=== PATIENT | male | born 1955 | race Caucasian/White ===

== ENCOUNTER → 2019-07-05 | Outpatient (CLI) | payer OTHER ==
--- NOTE | 2019-07-05 17:21 | CT ---
EXAMINATION TYPE: CT soft tissue neck w con DATE OF EXAM: 07/05/2019 3:18 PM COMPARISON: None HISTORY: swelling to left side of neck CT DLP: 354.1 mGycm Automated exposure control for dose reduction was used. CONTRAST: CT scan of the neck is performed following with IV Contrast, patient injected with 100 mL of Isovue 3 00. Axial images are obtained, coronal and sagittal reformatted images are reviewed. FINDINGS: Airway: No gross abnormality seen. Parotid/submandibular glands: No gross abnormality seen. Carotid/Vascular Structures: Proximal descending aorta is aneurysmal at 3.7 cm. For super aortic bran ch vessels are present from the transverse aorta. Osseous Structures: Degenerative disc changes in the visualized spine. Other: At the level of the hyoid bone on the left there is an enlarged node present causing some post erior displacement of the anterior margin of the left sternocleidomastoid muscle extending to the sub mandibular location and measuring approximately 3 cm x 4.4 cm x 3 cm. There is mass effect on the int ernal jugular vein anterior margin and posterior margin of the left submandibular gland. Smaller node s are present at the level of the thyroid cartilage on the left posterior to the internal jugular vei n which are subcentimeter in size. IMPRESSION: There is lymphadenopathy left neck described.
== END | disposition home or self-care (01) ==
LOC: RADCTMAIN 14:57
PROVIDERS: ATTEND Otolaryngology
DX: R59.0 Localized enlarged lymph nodes (principal)
CPT/HCPCS: 70491; Q9967

== ENCOUNTER → 2019-07-29 | Outpatient (CLI) | payer OTHER ==
--- NOTE | 2019-08-01 09:49 | PE ---
Nuclear medicine PET/CT HISTORY: Malignant neoplasm of head, face and neck, initial Patient received 11.4 mCi F-18 FDG intravenously in delayed scanning was performed with small field-o f-view images through the head and neck and imaging was performed from the skull base to the mid thig hs. Localization and attenuation correction CT scan was performed. Correlation to CT soft tissue neck 07/05/2019 Head and neck: The soft tissue mass seen on CT scan which is anterior to the left sternocleidomastoid muscle extends to the level from the angle of the mandible on the left inferiorly to the level of th e thyroid cartilage and measures approximately 3.2 x 2.4 cm posterior to the left submandibular gland , there is mass effect in the posterior aspect of the submandibular gland and lower anterior margin o f the sternocleidomastoid muscle. There is associated hypermetabolic uptake, SUV is 19. No additional abnormal hypermetabolic uptake are suspicious adenopathy. There is inflammatory change noted in the left maxillary sinus, possible mucus retention cyst, mucoperiosteal thickening within the maxillary s inuses. CHEST: There is no evident lung mass. No suspicious hypermetabolic uptake. No pleural or pericardial effusion. There is no mediastinal, axillary, or hilar adenopathy. Coronary artery calcifications are present. There may be a small hiatal hernia. Abdomen: No retroperitoneal adenopathy. No evident ascites. No evident liver mass. Nonobstructive ca lculus present within the lower pole of the left kidney. Probable exophytic cyst anterior left kidney measuring 2.6 cm. Possible extrarenal pelvis or partial UPJ obstruction bilaterally within the kidne ys. Diverticular change associated with the sigmoid colon. Osseous structures are within normal limits. IMPRESSION: Suspicious hypermetabolic uptake corresponding to patient's left neck mass. Additional fi ndings above. No additional suspicious hypermetabolic uptake.
== END | disposition home or self-care (01) ==
LOC: RADPETMAIN 13:52
PROVIDERS: ATTEND Otolaryngology
DX: C76.0 Malignant neoplasm of head, face and neck (principal); I25.10 Atherosclerotic heart disease of native coronary artery without angina pectoris; N20.0 Calculus of kidney; K57.30 Diverticulosis of large intestine without perforation or abscess without bleeding
CPT/HCPCS: 78815; A9552

== ENCOUNTER → 2020-02-24 | Outpatient (CLI) | payer OTHER ==
--- NOTE | 2020-02-26 19:37 | PE ---
EXAMINATION TYPE: PET CT fusion skull to thigh DATE OF EXAM: 02/24/2020 COMPARISON: 07/05/2019 Prior PET/CT: 07/29/2019 HISTORY: Head and neck cancer, oral pharynx TECHNIQUE: Following the intravenous administration of 12.76 mCi of F-18 FDG, whole body images are performed from the skull base to the midthigh. Images are reviewed on the computer in the coronal, a xial, and sagittal planes. Reconstructed rotating images are created on independent workstation and reviewed on the computer. A localization and attenuation correction CT is performed in conjunction with the PET scan. DLP: 417.20 +9 2.98 mGycm SCAN: Subsequent Blood glucose: 82 mg/dL Average Mediastinum SUV: 1.05 Average Liver SUV: 1.77 FINDINGS: Dedicated head and neck imaging is performed. No suspicious uptake is evident. Evaluation of the oral pharynx appears normal by PET/CT. Whole-body PET/CT: NECK: No abnormal uptake THORAX: No abnormal uptake ABDOMEN: No abnormal uptake PELVIS: No abnormal uptake OSSEOUS STRUCTURES: No abnormal uptake LOCALIZATION CT: Noncontrast localization CT imaging through the oropharynx appears within normal kim its. Some subtle asymmetry of the soft palate on the left cannot be excluded. Note is made of diverti cular changes within the sigmoid colon. Study is somewhat prominent. COMPARISON: Previous hyperactivity within the angle of the jaw extending inferiorly towards the thyro id is not evident on the current examination. No suspicious residual masses are identified. IMPRESSION: 1. No suspicious uptake within the left neck suggest residual or recurrent neoplasm. 2. No distant radiotracer accumulation to suggest metastatic disease.
== END | disposition home or self-care (01) ==
LOC: RADPETMAIN 09:06
PROVIDERS: ATTEND Radiology Radiation Oncology
DX: C09.1 Malignant neoplasm of tonsillar pillar (anterior) (posterior) (principal); R30.0 Dysuria; C09.9 Malignant neoplasm of tonsil, unspecified; C77.0 Secondary and unspecified malignant neoplasm of lymph nodes of head, face and neck; C10.9 Malignant neoplasm of oropharynx, unspecified
CPT/HCPCS: 78815; A9552

== ENCOUNTER → 2020-12-25 | Outpatient (CLI) | payer OTHER ==
[2020-12-25 18:33] LABS: T4, Free (Free Thyroxine) 1.1 ng/dL (0.80-1.80)
== END | disposition home or self-care (01) ==
LOC: LABWHC1 08:08
PROVIDERS: ATTEND Internal Medicine
DX: E03.9 Hypothyroidism, unspecified (principal)
CPT/HCPCS: 36415; 84439; 84443; 84481

== ENCOUNTER → 2021-04-02 | Outpatient (CLI) | payer OTHER ==
--- NOTE | 2021-04-02 10:59 | CT ---
EXAMINATION TYPE: CT chest wo con DATE OF EXAM: 04/02/2021 COMPARISON: Nuclear medicine PET/CT 02/24/2020 HISTORY: head and neck CA CT DLP: 233.0 mGycm. Automated Exposure Control for Dose Reduction was Utilized. TECHNIQUE: CT scan of the thorax is performed without IV contrast. FINDINGS: LUNGS: The lungs are grossly clear, there is no concerning parenchymal mass or nodule identified. T here is no pleural effusion or pneumothorax seen. The tracheobronchial tree is patent. MEDIASTINUM: Lack of IV contrast is noted to limit evaluation for mediastinal and especially hilar ad enopathy. There are no definitive greater than 1 cm hilar or mediastinal lymph nodes. No cardiomega ly or pericardial effusion is seen. There are coronary artery calcifications present. OTHER: Proximal descending aorta measures 2.9 cm, aortic root measures 3.8 cm, ascending aorta 3.8 cm . At the level of the aortic hiatus the aorta measures 3 cm. Scattered low attenuation foci within the liver statistically are likely to represent cysts. There is some diverticular changes associated with the colon. IMPRESSION: Aortic aneurysm and coronary artery disease. Noncontrast exam. Additional findings above.
== END | disposition home or self-care (01) ==
LOC: RADCTMAIN 09:12
PROVIDERS: ATTEND Internal Medicine Hematology & Oncology
DX: C76.0 Malignant neoplasm of head, face and neck (principal); I71.2 Thoracic aortic aneurysm, without rupture; I25.10 Atherosclerotic heart disease of native coronary artery without angina pectoris
CPT/HCPCS: 71250

== ENCOUNTER → 2022-04-04 | Outpatient (CLI) | payer OTHER ==
--- NOTE | 2022-04-04 12:10 | CT ---
EXAMINATION TYPE: CT chest w con CT DLP: 687 mGycm, Automated exposure control for dose reduction was used. DATE OF EXAM: 04/04/2022 11:35 AM COMPARISON: PET fusion 02/26/2020 CLINICAL INDICATION:Male, 66 years old with history of C76.0 neck ca;, Neck Cancer TECHNIQUE: Multiple axial images were obtained through the chest following the administration of 70 c c of Isovue 300. FINDINGS: LUNGS/ PLEURA: No evidence of focal consolidation, pneumothorax or pleural effusion. No suspicious pu lmonary nodules. Scattered tree-in-bud opacities posteriorly in the right lower lobe. AIRWAY: Patent and unremarkable. HEART: Size within normal limits mild coronary artery atherosclerosis. MEDIASTINUM: No gross evidence of adenopathy. VASCULATURE: No aortic aneurysm. Scattered atherosclerosis of the arterial vasculature. MUSCULOSKELETAL: Mild disc degeneration changes are present throughout the thoracolumbar spine. SOFT TISSUES/LYMPH NODES: Unremarkable. LOWER NECK: No significant findings. UPPER ABDOMEN: Scattered hypodensities throughout the liver with density of simple fluid. Scattered c lonic diverticula are seen in the upper abdomen. IMPRESSION: No evidence for metastatic disease.
== END | disposition home or self-care (01) ==
LOC: RADCTMAIN 09:59
PROVIDERS: ATTEND Internal Medicine Hematology & Oncology
DX: C76.0 Malignant neoplasm of head, face and neck (principal)
CPT/HCPCS: 82565; 84520; 71260; 36415; Q9967

== ENCOUNTER 2023-02-24 08:38 | Day surgery (SDC) | payer OTHER ==
[2023-02-20 11:02] VITALS: BMI 28.7
[2023-02-24] MEDS ORDERED: LACTATED RINGERS 1,000 ML IV ONE (08:55)
[2023-02-24 09:04] VITALS: TEMP 97
[2023-02-24] MEDS ORDERED: PROPOFOL 10 MG/ML 20 ML VIAL IV ONE (09:28)
--- NOTE | 2023-02-24 09:34 | P.GSHP ---
History of Present Illness H&P Date: 02/24/23 Chief Complaint: Colon cancer screening 67-year-old male here for colonoscopy. Last colonoscopy 15 years ago. No bowel complaints. No family history of colon cancer. Past Medical History Past Medical History: Thyroid Disorder History of Any Multi-Drug Resistant Organisms: None Reported Past Surgical History: Hernia Repair, Tonsillectomy Additional Past Surgical History / Comment(s): hx of tonsillar cancer chemo radiation, colonoscopy x3 polypectomy, hernia 20 years ago bilateral groin Past Anesthesia/Blood Transfusion Reactions: No Reported Reaction Additional Past Anesthesia/Blood Transfusion Reaction / Comment(s): no blood transfusion Smoking Status: Current every day smoker Medications and Allergies Home Medications Medication Instructions Recorded Confirmed Type Levothyroxine Sodium [Synthroid] 100 mcg PO DAILY 02/20/23 02/24/23 History Allergies Allergy/AdvReac Type Severity Reaction Status Date / Time No Known Allergies Allergy Verified 02/24/23 09:02 Surgical - Exam Vital Signs Temp Pulse Resp BP Pulse Ox 97 F L 57 L 18 132/75 97 02/24/23 09:03 02/24/23 09:03 02/24/23 09:03 02/24/23 09:03 02/24/23 09:03 Physical exam: General: Well-developed, well-nourished HEENT: Normocephalic, sclerae nonicteric Abdomen: Nontender, nondistended Extremities: No edema Neuro: Alert and oriented Assessment and Plan (1) Colon cancer screening Narrative/Plan: Will proceed with colonoscopy at this time. Current Visit: Yes Status: Acute Code(s): Z12.11 - ENCOUNTER FOR SCREENING FOR MALIGNANT NEOPLASM OF COLON SNOMED Code(s): 758885947
--- NOTE | 2023-02-24 09:47 | P.PCN ---
Date of Procedure: 02/24/23 Procedure(s) Performed: PREOPERATIVE DIAGNOSIS: Colon cancer screening POSTOPERATIVE DIAGNOSIS: Ascending colon polyp, sigmoid polyp, diverticulosis PROCEDURE: Colonoscopy with snare polypectomy ANESTHESIA: MAC SURGEON: Justin Potter M.D. SPECIMENS: Polyps ENDOSCOPIC PROCEDURE: The patient was placed on the endoscopy table in the left decubitus position. The Olympus colonoscope was inserted into the anus and passed under direct visualization to the base of the cecum. The appendiceal orifice was visualized. From that point the scope was slowly withdrawn inspecting all surfaces carefully. There were no neoplastic inflammatory or polypoid lesions throughout the cecum. In the ascending colon a small polyp was seen and removed using the cold snare technique. The remainder of the ascending transverse and descending colon appeared normal. In the sigmoid colon a small inflamed polyp was identified and removed using the snare with cautery technique. The remainder of the sigmoid and rectum appear normal. There was mild sided diverticulosis. Digital rectal examination was normal. The patient was taken to the recovery room in stable condition per anesthesia guidelines. RECOMMENDATIONS: Await biopsy results. Repeat colonoscopy likely 5 years.
[2023-02-24 10:25] VITALS: RESP 16
[2023-02-24 10:26] VITALS: BP 130/74; PULSE 51
== END 2023-02-24 10:56 | disposition home or self-care (01) ==
LOC: ORWHC2ENDO 08:38
PROVIDERS: ATTEND Surgery
DX: Z12.11 Encounter for screening for malignant neoplasm of colon (principal); D12.2 Benign neoplasm of ascending colon; K57.30 Diverticulosis of large intestine without perforation or abscess without bleeding; E07.9 Disorder of thyroid, unspecified; F17.200 Nicotine dependence, unspecified, uncomplicated; Z85.818 Personal history of malignant neoplasm of other sites of lip, oral cavity, and pharynx; Z79.899 Other long term (current) drug therapy; Z79.890 Hormone replacement therapy
CPT/HCPCS: 88305; 45385; J2704